=== PATIENT | male | born 1940 | race African-American/Black ===

== ENCOUNTER 2017-09-06 18:40 | Inpatient (IN) | payer OTHER, MEDICAID ==
[~2017-09-06] VITALS: Ht 152.4 cm; Wt 70.3 kg
[~2017-09-06 18:40] MED LIST: ALBU25PO2 MC; albuterol; amiodarone; coumadin; lasix; losartan; metformin; omeprazole
[2017-09-06] MEDS ORDERED: SODIUM CHLORIDE 0.9% 500 ML IV ONE (22:15)
[2017-09-06] MEDS ORDERED: IPRATROPIUM/ALBUTEROL 0.5-3(2.5)MG/3ML NEB HHN ONE (22:15)
[2017-09-06 23:22] LABS: CHLORIDE 104 mEq/L (98-107)
[2017-09-06 23:26] LABS: BASOPHILS % 0.5 % (0.0-2.0); EOSINOPHILS % 0.1 % (0.0-5.0); HEMATOCRIT. 31.4 % (42.0-52.0); HEMOGLOBIN. 9.5 g/dL (14.0-18.0); LYMPHOCYTES % 20.9 % (20.0-50.0); MEAN CORPUSCULAR HEMOGLOBIN 22.1 pg (28.0-32.0); MEAN CORPUSCULAR VOLUME 73.3 fL (80.0-94.0); NEUTROPHILS % 68.5 % (40.0-76.0); RED BLOOD CELL COUNT 4.29 mill/uL (4.7-6.1); RED CELL DISTRIBUTION WIDTH 20.4 % (11.6-14.6)
[2017-09-06 23:27] LABS: INR 1.1
[2017-09-07 00:24] LABS: MEAN PLATELET VOLUME 9.8 fl (7.4-10.4); PLATELET 138 x1000/uL (130-400)
[2017-09-07] MEDS ORDERED: SODIUM CHLORIDE 0.9% 500 ML IV ONE (03:15)
[2017-09-07 03:52] LABS: CLARITY URINE CLEAR (CLEAR); COLOR URINE YELLOW (YELLOW); PROTEIN URINE TRACE (NEGATIVE)
[2017-09-07 03:53] LABS: KETONES URINE TRACE (NEGATIVE); LEUKOCYTE ESTERASE URINE NEGATIVE (NEGATIVE); NITRITE URINE NEGATIVE (NEGATIVE); OCCULT BLOOD URINE NEGATIVE (NEGATIVE); UROBILINOGEN URINE 0.2 E.U./dL (0.2-1.0)
[2017-09-07 04:00] LABS: *AMPHETAMINES SCREEN URINE NEGATIVE (NEGATIVE); *BARBITURATES SCREEN URINE NEGATIVE (NEGATIVE); *BENZODIAZEPINES SCREEN URINE NEGATIVE (NEGATIVE); *COCAINE SCREEN URINE NEGATIVE (NEGATIVE); METHADONE URINE SCREEN NEGATIVE (NEGATIVE); OPIATES URINE SCREEN NEGATIVE (NEGATIVE)
[2017-09-07 04:01] LABS: CANNABINOID URINE SCREEN NEGATIVE (NEGATIVE); PHENCYCLIDINE URINE SCREEN NEGATIVE (NEGATIVE)
[2017-09-07 10:55] VITALS: BP 125/65
[2017-09-07] MEDS ORDERED: LEVOFLOXACIN 500MG TABLET PO SCH (11:30)
[2017-09-07] MEDS ORDERED: DEXTROSE 50% WATER 50ML SYRINGE IV PRN (11:30)
[2017-09-07] MEDS: BLOOD SUGAR DIAGNOSTIC STRIP TEST SCH ×3 (11:45→21:48)
[2017-09-07] MEDS: INSULIN LISPRO 100 UNITS/ML SUBCUT SCH ×3 (11:59→21:48)
[2017-09-07 12:00] VITALS: BP 136/53
[2017-09-07] MEDS ORDERED: MORPHINE SULFATE 4 MG/ML CPJ (NOT FOR IM USE) IV PRN (12:15)
[2017-09-07] MEDS ORDERED: HYDROCODONE/ACETAMINOPHEN 5/325MG TABLET PO PRN (12:15)
[2017-09-07] MEDS: IPRATROPIUM/ALBUTEROL 0.5-3(2.5)MG/3ML NEB HHN PRN (14:30)
[2017-09-07 16:00] VITALS: BP 112/55
[2017-09-07] MEDS: RIVAROXABAN 20 MG TABLET PO SCH (17:07)
[2017-09-07] MEDS ORDERED: FUROSEMIDE 40MG/4ML VIAL IVP SCH (17:15)
[2017-09-07 20:00] VITALS: BP 122/56
[2017-09-08] VITALS (11 sets, daily range): BP systolic 88–133; BP diastolic 36–83
[2017-09-08] MEDS: DILTIAZEM HCL 30MG TABLET PO SCH ×2 (06:21→06:23)
[2017-09-08] MEDS: BLOOD SUGAR DIAGNOSTIC STRIP TEST SCH ×4 (06:23→21:46)
[2017-09-08] MEDS: INSULIN LISPRO 100 UNITS/ML SUBCUT SCH ×4 (06:24→21:00)
[2017-09-08] MEDS: IPRATROPIUM/ALBUTEROL 0.5-3(2.5)MG/3ML NEB HHN PRN (06:25)
[2017-09-08 07:28] LABS: BASOPHILS % 0.3 % (0.0-2.0); HEMOGLOBIN. 8.9 g/dL (14.0-18.0); LYMPHOCYTES % 24.2 % (20.0-50.0); MEAN CORPUSCULAR HEMOGLOBIN 22.5 pg (28.0-32.0); MEAN CORPUSCULAR VOLUME 73.6 fL (80.0-94.0); MONOCYTES % 8.5 % (2.0-8.0); RED BLOOD CELL COUNT 3.94 mill/uL (4.7-6.1); RED CELL DISTRIBUTION WIDTH 19.7 % (11.6-14.6)
[2017-09-08] MEDS: BUDESONIDE 0.5MG/2ML NEB HHN SCH ×2 (07:49→20:35)
[2017-09-08] MEDS ORDERED: FUROSEMIDE 40MG/4ML VIAL IVP SCH (09:00)
[2017-09-08 09:04] LABS: MEAN PLATELET VOLUME 9.4 fl (7.4-10.4); PLATELET 118 x1000/uL (130-400)
[2017-09-08 09:12] LABS: CHLORIDE 104 mEq/L (98-107)
[2017-09-08] MEDS: LEVOFLOXACIN 250MG TABLET PO SCH (12:31)
[2017-09-08] MEDS: RIVAROXABAN 20 MG TABLET PO SCH (18:59)
[2017-09-08] MEDS ORDERED: DILTIAZEM HCL 5MG/ML 5ML VIAL IV NR (20:45)
[2017-09-08] MEDS ORDERED: DILTIAZEM HCL 5MG/ML 5ML VIAL IV ONE (20:45)
[2017-09-08] MEDS ORDERED: SODIUM CHLORIDE 0.9% 250 ML IV NR (21:15)
[2017-09-08] MEDS ORDERED: DILTIAZEM HCL 5MG/ML 5ML VIAL IV PRN (21:15)
[2017-09-08] MEDS: DILTIAZEM HCL 60MG TABLET PO SCH (22:00)
[2017-09-08] MEDS: AMIODARONE HCL 200 MG TABLET PO SCH (22:21)
[2017-09-09] VITALS: BP 114/46
[2017-09-09] MEDS: BUDESONIDE 0.5MG/2ML NEB HHN SCH ×2 (00:34→07:58)
[2017-09-09 04:00] VITALS: BP 100/45
[2017-09-09] MEDS: DILTIAZEM HCL 60MG TABLET PO SCH ×2 (05:45→14:00)
[2017-09-09] MEDS: BLOOD SUGAR DIAGNOSTIC STRIP TEST SCH ×2 (06:35→12:10)
[2017-09-09] MEDS: AMIODARONE HCL 200 MG TABLET PO SCH ×2 (06:35→16:41)
[2017-09-09] MEDS: INSULIN LISPRO 100 UNITS/ML SUBCUT SCH ×2 (06:35→12:25)
[2017-09-09 07:33] VITALS: BP 119/64
[2017-09-09] MEDS ORDERED: FUROSEMIDE 40MG TABLET PO SCH (09:00)
[2017-09-09 11:49] VITALS: BP 119/47
[2017-09-09] MEDS: LEVOFLOXACIN 250MG TABLET PO SCH (12:10)
[2017-09-09 15:48] VITALS: BP 118/52
== END 2017-09-09 17:15 | disposition short-term general hospital (02) | DRG 871 ==
LOC: ER 18:45 → 5WST 09-07 01:19 → ENRESERV 09-07 09:57
PROVIDERS: ADMIT Internal Medicine; ATTEND Internal Medicine
DX: A41.9 Sepsis, unspecified organism (principal); I50.43 Acute on chronic combined systolic (congestive) and diastolic (congestive) heart failure; J96.01 Acute respiratory failure with hypoxia; J18.9 Pneumonia, unspecified organism; E44.0 Moderate protein-calorie malnutrition; E87.0 Hyperosmolality and hypernatremia; I42.9 Cardiomyopathy, unspecified; I47.1 Supraventricular tachycardia; I48.92 Unspecified atrial flutter; J44.0 Chronic obstructive pulmonary disease with (acute) lower respiratory infection; J44.1 Chronic obstructive pulmonary disease with (acute) exacerbation; I95.9 Hypotension, unspecified; E11.9 Type 2 diabetes mellitus without complications; I48.2 Chronic atrial fibrillation; D64.9 Anemia, unspecified; E86.0 Dehydration; F03.90 Unspecified dementia, unspecified severity, without behavioral disturbance, psychotic disturbance, mood disturbance, and anxiety; I11.0 Hypertensive heart disease with heart failure; I27.20 Pulmonary hypertension, unspecified; Z79.01 Long term (current) use of anticoagulants; Z99.81 Dependence on supplemental oxygen; Z79.899 Other long term (current) drug therapy; Z68.30 Body mass index [BMI] 30.0-30.9, adult; Z79.51 Long term (current) use of inhaled steroids
CPT/HCPCS: 36415; 51702; 71045; 73502; 80048; 80053; 80061; 80305; 81003; 82728; 82962; 83036; 83540; 83550; 83880; 84443; 84484; 85025; 85610; 87040; 87086; 93005; 93970; 94640; 96360; 96361; 97162; 99285; J1815; J1940; J3490; J7040; J7050; J7620; J7626; A4315

== ENCOUNTER 2018-01-01 10:57 | Inpatient (IN) | payer OTHER, MEDICAID ==
[~2018-01-01] VITALS: Ht 162.6 cm; Wt 59.0 kg
[2018-01-01] VITALS (16 sets, daily range): BP systolic 103–140; BP diastolic 47–75
[2018-01-01] MEDS ORDERED: ALBUTEROL (0.083%) 2.5MG/3ML NEB HHN STA (10:59)
[2018-01-01] MEDS ORDERED: IPRATROPIUM BROMIDE (0.02%) 0.5MG/2.5ML NEB HHN STA (10:59)
[2018-01-01 11:44] LABS: EOSINOPHILS % 1.3 % (0.0-5.0); HEMATOCRIT. 22.4 % (42.0-52.0); LYMPHOCYTES % 24.8 % (20.0-50.0); MEAN CORPUSCULAR HEMOGLOBIN 21.9 pg (28.0-32.0); MEAN CORPUSCULAR VOLUME 70.8 fL (80.0-94.0); MEAN PLATELET VOLUME 8.8 fl (7.4-10.4); MONOCYTES % 5.1 % (2.0-8.0); NEUTROPHILS % 67.8 % (40.0-76.0); PLATELET 142 x1000/uL (130-400); RED BLOOD CELL COUNT 3.16 mill/uL (4.7-6.1)
[2018-01-01 11:47] LABS: CHLORIDE 107 mEq/L (98-107)
[2018-01-01 11:48] LABS: HEMOGLOBIN. 6.9 g/dL (14.0-18.0)
[2018-01-01 12:02] LABS: BG BASE EXCESS -2.8 mmol/L (-2.0-2.0); BG BILEVEL POS AIRWAY PRESSURE S/T 15/5; BG CARBOXYHEMOGLOBIN 0.7 % (0.5-1.5); BG DEOXYHEMOGLOBIN 1.4 % (0.0-5.0); BG FRACTION INSPIRED OXYGEN 50; BG HCO3 ACT 25.8 mmol/L (22.0-26.0); BG METHEMOGLOBIN 0.6 % (0.0-1.5); BG OXYGEN SATURATION 98.6 % (92.0-98.5); BG OXYHEMOGLOBIN 97.3 % (94.0-97.0); BG PCO2 70.5 mmHg (35.0-45.0); BG PH 7.181 (7.350-7.450); BG PO2 153.2 mmHg (75.0-100.0); BG SAMPLE SITE RIGHT BRACHIAL; BG TOTAL HEMOGLOBIN 7.7 g/dL (12.0-18.0); BG VENT MODE MASK - BIPAP; BG VENT RATE 16 set
[2018-01-01 12:23] LABS: PLATELET ESTIMATE NORMAL
[2018-01-01 13:10] LABS: BG BASE EXCESS -2.2 mmol/L (-2.0-2.0); BG BILEVEL POS AIRWAY PRESSURE 15/5; BG FRACTION INSPIRED OXYGEN 40; BG HCO3 ACT 27.1 mmol/L (22.0-26.0); BG METHEMOGLOBIN 0.3 % (0.0-1.5); BG OXYHEMOGLOBIN 97.7 % (94.0-97.0); BG PCO2 80.7 mmHg (35.0-45.0); BG PH 7.144 (7.350-7.450); BG PO2 177.9 mmHg (75.0-100.0); BG SAMPLE SITE RIGHT BRACHIAL; BG TOTAL HEMOGLOBIN 7.5 g/dL (12.0-18.0); BG VENT MODE MASK - BIPAP
[2018-01-01] MEDS ORDERED: FUROSEMIDE 40MG/4ML VIAL IVP SCH (13:15)
[2018-01-01] MEDS ORDERED: GUAIFENESIN 200MG/10ML SUGAR FREE UDC PO PRN (14:15)
[2018-01-01] MEDS ORDERED: ACETAMINOPHEN 325MG TABLET PO PRN (14:15)
[2018-01-01] MEDS ORDERED: IPRATROPIUM/ALBUTEROL 0.5-3(2.5)MG/3ML NEB INH PRN (14:15)
[2018-01-01] MEDS ORDERED: LEVOFLOXACIN 500MG PREMIX 100 ML IV SCH ×2 (14:15→17:00)
[2018-01-01] MEDS ORDERED: HYDROMORPHONE HCL/PF 2MG/ML CPJ IV PRN (14:15)
[2018-01-01] MEDS ORDERED: CLONIDINE 0.1MG TABLET PO PRN (14:15)
[2018-01-01] MEDS ORDERED: ONDANSETRON HCL 4MG/2ML INJ IV PRN (14:15)
[2018-01-01] MEDS ORDERED: LORAZEPAM 2MG/ML CPJ IV PRN (14:15)
[2018-01-01] MEDS ORDERED: HYDROCODONE/ACETAMINOPHEN 5/325MG TABLET PO PRN (14:15)
[2018-01-01] MEDS ORDERED: DEXTROSE 50% WATER 50ML SYRINGE IV PRN (14:30)
[2018-01-01] MEDS ORDERED: FUROSEMIDE 20MG/2ML VIAL IVP SCH (15:15)
[2018-01-01] MEDS: METHYLPREDNISOLONE SOD SUCC 40 MG/ML VIAL IV SCH ×2 (16:47→22:26)
[2018-01-01 16:51] LABS: BG BASE EXCESS -1.2 mmol/L (-2.0-2.0); BG BILEVEL POS AIRWAY PRESSURE 20/5; BG CARBOXYHEMOGLOBIN 0.9 % (0.5-1.5); BG DEOXYHEMOGLOBIN 2.2 % (0.0-5.0); BG FRACTION INSPIRED OXYGEN 35; BG HCO3 ACT 25.9 mmol/L (22.0-26.0); BG METHEMOGLOBIN 0.4 % (0.0-1.5); BG OXYGEN SATURATION 97.8 % (92.0-98.5); BG OXYHEMOGLOBIN 96.5 % (94.0-97.0); BG PH 7.261 (7.350-7.450); BG PO2 114.1 mmHg (75.0-100.0); BG SAMPLE SITE RIGHT BRACHIAL; BG TOTAL HEMOGLOBIN 6.8 g/dL (12.0-18.0); BG VENT MODE MASK - BIPAP
[2018-01-01] MEDS: INSULIN LISPRO 100 UNITS/ML SUBCUT SCH ×2 (17:10→21:17)
[2018-01-01] MEDS: BLOOD SUGAR DIAGNOSTIC STRIP TEST SCH ×2 (17:10→21:05)
[2018-01-01] MEDS ORDERED: VANCOMYCIN 1500MG in DEXTROSE 5% WATER 250ML IV SCH (18:00)
[2018-01-01 19:48] LABS: TOTAL IRON BINDING CAPACITY 168 ug/dL (250-450)
[2018-01-01 20:07] LABS: FOLIC ACID (FOLATE) SERUM 12.4 ng/mL (>5.38)
[2018-01-01] MEDS: IPRATROPIUM/ALBUTEROL 0.5-3(2.5)MG/3ML NEB INH SCH (20:45)
[2018-01-01] MEDS: FUROSEMIDE 40MG/4ML VIAL IV SCH (21:16)
[2018-01-01 23:51] LABS: HEMATOCRIT 24.5 % (42.0-52.0); HEMOGLOBIN 7.6 g/dL (14.0-18.0)
[2018-01-02] VITALS (12 sets, daily range): BP systolic 114–144; BP diastolic 55–97
[2018-01-02 00:10] LABS: CREATINE KINASE 58 IU/L (39-308)
[2018-01-02] MEDS: IPRATROPIUM/ALBUTEROL 0.5-3(2.5)MG/3ML NEB INH SCH ×4 (02:38→19:59)
[2018-01-02] MEDS: BLOOD SUGAR DIAGNOSTIC STRIP TEST SCH ×4 (06:26→21:26)
[2018-01-02] MEDS: METHYLPREDNISOLONE SOD SUCC 40 MG/ML VIAL IV SCH ×3 (06:26→21:31)
[2018-01-02] MEDS: INSULIN LISPRO 100 UNITS/ML SUBCUT SCH ×4 (07:20→21:00)
[2018-01-02 07:39] LABS: CHLORIDE 106 mEq/L (98-107)
[2018-01-02 07:50] LABS: CREATINE KINASE 50 IU/L (39-308)
[2018-01-02 07:51] LABS: HDL CHOLESTEROL 50 mg/dL (40-59)
[2018-01-02 07:52] LABS: LDL CHOLESTEROL 65 mg/dL (5-100)
[2018-01-02 08:15] LABS: HEMOGLOBIN. 7.4 g/dL (14.0-18.0); MEAN CORPUSCULAR HEMOGLOBIN 23.1 pg (28.0-32.0); MEAN CORPUSCULAR VOLUME 71.8 fL (80.0-94.0); RED CELL DISTRIBUTION WIDTH 21.4 % (11.6-14.6)
[2018-01-02 08:21] LABS: BG BASE EXCESS -1.7 mmol/L (-2.0-2.0); BG BILEVEL POS AIRWAY PRESSURE 20/5; BG CARBOXYHEMOGLOBIN 0.4 % (0.5-1.5); BG DEOXYHEMOGLOBIN 1.4 % (0.0-5.0); BG FRACTION INSPIRED OXYGEN 35; BG HCO3 ACT 23.9 mmol/L (22.0-26.0); BG METHEMOGLOBIN 0.3 % (0.0-1.5); BG OXYGEN SATURATION 98.6 % (92.0-98.5); BG OXYHEMOGLOBIN 97.9 % (94.0-97.0); BG PCO2 45.2 mmHg (35.0-45.0); BG PH 7.342 (7.350-7.450); BG PO2 142.5 mmHg (75.0-100.0); BG SAMPLE SITE RIGHT BRACHIAL; BG TOTAL HEMOGLOBIN 8.1 g/dL (12.0-18.0); BG VENT MODE MASK - BIPAP
[2018-01-02] MEDS: FUROSEMIDE 40MG/4ML VIAL IV SCH (08:37)
[2018-01-02] MEDS: PANTOPRAZOLE SODIUM 40 MG/VIAL IV SCH (08:37)
[2018-01-02] MEDS: LEVOFLOXACIN 250MG PREMIX 50 ML IV SCH (10:48)
[2018-01-02 14:10] LABS: PLATELET ESTIMATE SLIGHTLY DECREASED
[2018-01-02 14:11] LABS: MEAN PLATELET VOLUME 9.1 fl (7.4-10.4); PLATELET 127 x1000/uL (130-400)
[2018-01-03] VITALS (12 sets, daily range): BP systolic 118–162; BP diastolic 27–82
[2018-01-03] MEDS: IPRATROPIUM/ALBUTEROL 0.5-3(2.5)MG/3ML NEB INH SCH ×4 (01:27→20:33)
[2018-01-03 05:47] LABS: INR 2.2; PROTHROMBIN TIME 21.4 sec (9.1-11.1)
[2018-01-03] MEDS: METHYLPREDNISOLONE SOD SUCC 40 MG/ML VIAL IV SCH (05:49)
[2018-01-03 06:18] LABS: HEMATOCRIT. 22.9 % (42.0-52.0); HEMOGLOBIN. 7.5 g/dL (14.0-18.0); MEAN CORPUSCULAR HEMOGLOBIN 23.3 pg (28.0-32.0); MEAN CORPUSCULAR VOLUME 70.9 fL (80.0-94.0); RED BLOOD CELL COUNT 3.23 mill/uL (4.7-6.1); RED CELL DISTRIBUTION WIDTH 21.2 % (11.6-14.6)
[2018-01-03] MEDS: BLOOD SUGAR DIAGNOSTIC STRIP TEST SCH ×4 (06:50→20:50)
[2018-01-03] MEDS: INSULIN LISPRO 100 UNITS/ML SUBCUT SCH ×4 (07:20→20:39)
[2018-01-03 08:25] LABS: PLATELET ESTIMATE NORMAL
[2018-01-03 08:28] LABS: MEAN PLATELET VOLUME 9.2 fl (7.4-10.4); PLATELET 151 x1000/uL (130-400)
[2018-01-03] MEDS: PANTOPRAZOLE SODIUM 40 MG/VIAL IV SCH (08:33)
[2018-01-03] MEDS: FUROSEMIDE 40MG/4ML VIAL IV SCH (08:33)
[2018-01-03 09:14] LABS: BG BASE EXCESS 1.2 mmol/L (-2.0-2.0); BG CARBOXYHEMOGLOBIN 0.4 % (0.5-1.5); BG DEOXYHEMOGLOBIN 5.2 % (0.0-5.0); BG FRACTION INSPIRED OXYGEN 36; BG HCO3 ACT 27.4 mmol/L (22.0-26.0); BG METHEMOGLOBIN 0.3 % (0.0-1.5); BG OXYGEN SATURATION 94.8 % (92.0-98.5); BG OXYHEMOGLOBIN 94.1 % (94.0-97.0); BG PCO2 52.4 mmHg (35.0-45.0); BG PH 7.336 (7.350-7.450); BG PO2 80.7 mmHg (75.0-100.0); BG SAMPLE SITE RIGHT BRACHIAL; BG TOTAL HEMOGLOBIN 8.4 g/dL (12.0-18.0); BG VENT MODE NASAL CANNULA
[2018-01-03 09:36] LABS: CREATINE KINASE 50 IU/L (39-308)
[2018-01-03] MEDS: LEVOFLOXACIN 250MG PREMIX 50 ML IV SCH (10:37)
[2018-01-03] MEDS: DUTASTERIDE 0.5MG CAPSULE PO SCH (11:08)
[2018-01-03] MEDS: PREDNISONE 20MG TABLET PO SCH (16:23)
[2018-01-03] MEDS: TAMSULOSIN HCL 0.4MG SR CAPSULE PO SCH (20:40)
[2018-01-04] VITALS (10 sets, daily range): BP systolic 100–139; BP diastolic 50–80
[2018-01-04] MEDS: IPRATROPIUM/ALBUTEROL 0.5-3(2.5)MG/3ML NEB INH SCH ×3 (02:00→12:02)
[2018-01-04] MEDS: BLOOD SUGAR DIAGNOSTIC STRIP TEST SCH ×3 (06:00→16:23)
[2018-01-04 06:27] LABS: HEMATOCRIT. 22.6 % (42.0-52.0); HEMOGLOBIN. 7.4 g/dL (14.0-18.0); MEAN CORPUSCULAR HEMOGLOBIN 23.2 pg (28.0-32.0); RED BLOOD CELL COUNT 3.18 mill/uL (4.7-6.1); RED CELL DISTRIBUTION WIDTH 21.6 % (11.6-14.6)
[2018-01-04] MEDS: INSULIN LISPRO 100 UNITS/ML SUBCUT SCH ×2 (07:20→11:37)
[2018-01-04] MEDS: TAMSULOSIN HCL 0.4MG SR CAPSULE PO SCH (08:47)
[2018-01-04] MEDS: FUROSEMIDE 40MG/4ML VIAL IV SCH (08:47)
[2018-01-04] MEDS: PREDNISONE 20MG TABLET PO SCH (08:47)
[2018-01-04] MEDS: DUTASTERIDE 0.5MG CAPSULE PO SCH (08:47)
[2018-01-04] MEDS: PANTOPRAZOLE SODIUM 40 MG/VIAL IV SCH (08:47)
[2018-01-04] MEDS ORDERED: ENOXAPARIN 40MG/0.4ML SYR SUBCUT SCH (09:00)
[2018-01-04] MEDS: LEVOFLOXACIN 250MG PREMIX 50 ML IV SCH (11:33)
[2018-01-04 12:52] LABS: CLARITY URINE CLEAR (CLEAR); COLOR URINE YELLOW (YELLOW); KETONES URINE NEGATIVE (NEGATIVE); LEUKOCYTE ESTERASE URINE TRACE (NEGATIVE); NITRITE URINE NEGATIVE (NEGATIVE); OCCULT BLOOD URINE TRACE (NEGATIVE); PROTEIN URINE NEGATIVE (NEGATIVE); SPECIFIC GRAVITY URINE 1.006 (1.005-1.030); UROBILINOGEN URINE 0.2 E.U./dL (0.2-1.0)
[2018-01-04 13:53] LABS: MEAN PLATELET VOLUME 9.2 fl (7.4-10.4); PLATELET 138 x1000/uL (130-400); PLATELET ESTIMATE NORMAL
[2018-01-05] MEDS ORDERED: LEVOFLOXACIN 250MG TABLET PO SCH (11:00)
[2018-01-05 19:09] LABS: ANTI-NUCLEAR ANTIBODIES DIRECT Negative (Negative)
[2018-01-06 04:09] LABS: COMPLEMENT C3 116 mg/dL (82-167)
== END 2018-01-04 16:30 | disposition short-term general hospital (02) | DRG 682 ==
LOC: ER 10:57 → 3WST 13:20 → EDBEDREQ 13:36 → ENRESERV 14:04 → 3WST 01-02 23:41
PROVIDERS: ADMIT Hospitalist; ATTEND Hospitalist
PROC: 30233N1 Transfusion of Nonautologous Red Blood Cells into Peripheral Vein, Percutaneous Approach (ICD-10-PCS; principal; 2018-01-01)
PROC: 5A09357 Assistance with Respiratory Ventilation, Less than 24 Consecutive Hours, Continuous Positive Airway Pressure (ICD-10-PCS; 2018-01-01)
PROC: 5A09357 Assistance with Respiratory Ventilation, Less than 24 Consecutive Hours, Continuous Positive Airway Pressure (ICD-10-PCS; 2018-01-02)
PROC: 5A09357 Assistance with Respiratory Ventilation, Less than 24 Consecutive Hours, Continuous Positive Airway Pressure (ICD-10-PCS; 2018-01-03)
DX: N17.0 Acute kidney failure with tubular necrosis (principal); I50.43 Acute on chronic combined systolic (congestive) and diastolic (congestive) heart failure; J96.02 Acute respiratory failure with hypercapnia; J96.01 Acute respiratory failure with hypoxia; I13.0 Hypertensive heart and chronic kidney disease with heart failure and stage 1 through stage 4 chronic kidney disease, or unspecified chronic kidney disease; J44.1 Chronic obstructive pulmonary disease with (acute) exacerbation; D61.818 Other pancytopenia; E87.2 Acidosis; E44.0 Moderate protein-calorie malnutrition; I42.9 Cardiomyopathy, unspecified; D68.9 Coagulation defect, unspecified; I48.1 Persistent atrial fibrillation; D50.9 Iron deficiency anemia, unspecified; E11.22 Type 2 diabetes mellitus with diabetic chronic kidney disease; J45.909 Unspecified asthma, uncomplicated; E87.5 Hyperkalemia; D63.8 Anemia in other chronic diseases classified elsewhere; I08.1 Rheumatic disorders of both mitral and tricuspid valves; I27.20 Pulmonary hypertension, unspecified; I48.2 Chronic atrial fibrillation; K46.9 Unspecified abdominal hernia without obstruction or gangrene; N18.9 Chronic kidney disease, unspecified; N40.1 Benign prostatic hyperplasia with lower urinary tract symptoms; R33.8 Other retention of urine; Z79.01 Long term (current) use of anticoagulants; Z87.01 Personal history of pneumonia (recurrent); Z87.891 Personal history of nicotine dependence; Z95.0 Presence of cardiac pacemaker; Z99.81 Dependence on supplemental oxygen; Z79.899 Other long term (current) drug therapy; Z68.22 Body mass index [BMI] 22.0-22.9, adult
CPT/HCPCS: 36415; 36600; 71045; 76770; 80048; 80061; 82375; 82550; 82607; 82728; 82746; 82805; 82962; 83540; 83550; 83880; 84484; 85014; 85018; 86038; 86160; 86850; 86900; 86920; 87804; 93005; 93306; 93970; 94640; 94644; 94660; 99291; C9113; J1815; J1940; J1956; J2920; J3370; J7040; J7050; J7060; J7512; J7611; J7620; P9016; A4315